=== PATIENT | male | born 1975 | race Caucasian/White ===

== ENCOUNTER → 2016-07-24 | Outpatient (CLI) | payer OTHER ==
--- NOTE | 2016-07-24 08:44 | US ---
EXAMINATION TYPE: US abdomen complete DATE OF EXAM: 07/24/2016 7:57 AM COMPARISON: NONE CLINICAL HISTORY: 41-year-old male R10.0 ABD PAIN. Right upper quadrant pain that radiates posteriorl y, worse after eating. TECHNIQUE: Multiple sonographic images of the abdomen were obtained. FINDINGS: TECHNOLOGIST NOTES: Some limitations due to overlying bowel gas Liver Length: 13.7 cm Gallbladder Wall: 0.2 cm CBD: 0.2 cm Spleen: 8.8 cm Right Kidney: 10.4 x 4.1 x 5.3 cm Left Kidney: 10.2 x 5.8 x 5.0 cm Pancreas: Only a small portion of the pancreatic neck and body are seen and show no gross abnormalit y. Pancreatic head, most of the body, and the pancreatic tail are obscured by bowel gas shadowing. Liver: Overall homogeneous echotexture without focal lesion. Gallbladder: No abnormal gallbladder distention, wall thickening, pericholecystic fluid, or shadowin g calculi. Evidence for sonographic Laureano's sign: no CBD: Within normal limits. Spleen: Within normal limits. Right Kidney: No hydronephrosis. Left Kidney: No hydronephrosis. Upper IVC: Within normal limits. Abd Aorta: Within normal limits. IMPRESSION: Suboptimal visualization of the pancreas. Otherwise, unremarkable sonographic examination of the abdo men.
== END | disposition home or self-care (01) ==
LOC: RADUSWWP 07:39
PROVIDERS: ATTEND Family Medicine
DX: R10.9 Unspecified abdominal pain (principal)
CPT/HCPCS: 76700

== ENCOUNTER → 2016-07-25 | Outpatient (CLI) | payer OTHER ==
--- NOTE | 2016-07-25 18:52 | XR ---
EXAMINATION TYPE: XR KUB DATE OF EXAM: 07/25/2016 4:43 PM COMPARISON: NONE HISTORY: Upper abdominal pain TECHNIQUE: Single view FINDINGS: Bowel gas pattern is normal. There is no sign of intestinal obstruction or pneumoperitoneum . Fecal pattern is normal. There is no sign of a mass. There are no pathologic calcifications over th e kidneys. IMPRESSION: Nonacute abdomen.
== END | disposition home or self-care (01) ==
LOC: RADXRMAIN 16:34
PROVIDERS: ATTEND Family Medicine
DX: R10.9 Unspecified abdominal pain (principal)
CPT/HCPCS: 74000

== ENCOUNTER → 2017-03-27 | Outpatient (CLI) | payer OTHER ==
--- NOTE | 2017-03-27 15:29 | NM ---
EXAMINATION TYPE: NM hepatobiliary w EF DATE OF EXAM: 03/27/2017 COMPARISON: Ultrasound abdomen 07/24/2016 HISTORY: Gastroesophageal reflux disease, R 10.1 3 TECHNIQUE: After the intravenous administration of 5.44 mCi Tc 99m Mebrofenin hepatobiliary scintigra phy is performed. Immediate images post injection. FINDINGS: There is satisfactory initial accumulation of tracer by the liver. The gallbladder is visualized wit hin 6 minutes. The small bowel activity is noted within 10 minutes. At one hour 8 ounces of oral en sure plus is given to mimic CCK and gallbladder ejection fraction is calculated at 72 %, in the ryan l range. Therefore there is no scintigraphic evidence of cystic or common bile duct obstruction to s uggest acute cholecystitis or gallbladder dyskinesia. IMPRESSION: Exam is within normal limits.
== END | disposition home or self-care (01) ==
LOC: RADNMMAIN 12:51
PROVIDERS: ATTEND Surgery
DX: R10.13 Epigastric pain (principal); K21.9 Gastro-esophageal reflux disease without esophagitis
CPT/HCPCS: 78226; A9537

== ENCOUNTER 2017-05-17 07:40 | Day surgery (SDC) | payer OTHER ==
[2017-05-15 11:53] VITALS: BMI 23.6
[~2017-05-17 07:40] MED LIST: LACTATED RINGERS 1,000 ML IV SCH
[2017-05-17 08:27] VITALS: TEMP 97
[2017-05-17] MEDS ORDERED: LIDOCAINE 1% 20 ML VIAL (10MG/ML) FOR IV START INTRADERMA ONE (08:30)
[2017-05-17] MEDS ORDERED: LIDOCAINE 1% INJ 10MG/ML (20 ML MDV) ONE (08:58)
[2017-05-17] MEDS ORDERED: PROPOFOL 10 MG/ML 20 ML VIAL IV ONE (08:58)
--- NOTE | 2017-05-17 09:03 | P.GSHP ---
History of Present Illness H&P Date: 05/17/17 Chief Complaint: Diarrhea, right-sided abdominal pain This is a 42-year-old male referred from Dr. Allen. Patient rents today for colonoscopy. He's had issues with diarrhea and some right-sided abdominal pain. His recent HIDA scan was within normal limits. Past Medical History Past Medical History: GI Bleed Additional Past Medical History / Comment(s): Abdominal pain since August 2016, freq loose stools History of Any Multi-Drug Resistant Organisms: None Reported Past Surgical History: Hernia Repair, Orthopedic Surgery Additional Past Surgical History / Comment(s): Bilateral inguinal hernia repair. cervical disc fusion/screws. Thyroglossal duct cyst removal yrs ago Past Anesthesia/Blood Transfusion Reactions: No Reported Reaction Smoking Status: Current every day smoker - Past Family History Sister(s) Family Medical History: Cancer Additional Family Medical History / Comment(s): Bone CA Medications and Allergies Home Medications Medication Instructions Recorded Confirmed Type Diazepam [Valium] 5 mg PO BID PRN 10/22/14 05/17/17 History Ciprofloxacin HCl [Cipro] 500 mg PO Q12HR #20 tablet 05/14/17 05/15/17 Rx Omeprazole 20 mg PO DAILY 05/14/17 05/17/17 History metroNIDAZOLE [Flagyl] 500 mg PO BID #20 tab 05/14/17 05/15/17 Rx traMADol HCl [Ultram] 50 - 100 mg PO Q6H PRN #20 tab 05/14/17 05/17/17 Rx Allergies Allergy/AdvReac Type Severity Reaction Status Date / Time Penicillins Allergy Rash/Hives/ Verified 05/17/17 08:20 Swelling Surgical - Exam Vital Signs Temp Pulse Resp BP Pulse Ox 97 F L 72 16 131/84 97 05/17/17 08:26 05/17/17 08:26 05/17/17 08:26 05/17/17 08:26 05/17/17 08:26 - General well developed, no distress - Eyes PERRL - ENT normal pinna - Neck no masses - Respiratory normal expansion - Cardiovascular Rhythm: regular - Abdomen Abdomen: soft, non tender Assessment and Plan Assessment: Diarrhea, right-sided abdominal pain. We'll perform colonoscopy.
--- NOTE | 2017-05-17 09:17 | P.OP ---
Date of Procedure: 05/17/17 Preoperative Diagnosis: Diarrhea Right-sided abdominal pain Postoperative Diagnosis: Normal colon, random right colon biopsies performed Procedure(s) Performed: Colonoscopy Anesthesia: MAC Surgeon: Rudi Silvestre Pathology: other (Random right colon biopsies) Condition: stable Disposition: PACU Description of Procedure: The patient's placed on the endoscopy table lateral position. He received IV sedation. Digital rectal exam was performed which revealed no abnormalities. The colonoscope was then placed patient anus passed throughout the entire colon. The ileocecal valve was visualized. Cecum appeared normal. Scope summer back right colon there was no obvious abnormality. A random right colon biopsies performed. Scope was brought back and the remainder of the ascending colon, transverse colon descending colon and sigmoid colon appeared normal. Scope was then brought back the rectum and this appeared normal. Scope was withdrawn for patient.
[2017-05-17 09:56] VITALS: BP 106/71; PULSE 73; RESP 18
== END 2017-05-17 10:49 | disposition home or self-care (01) ==
LOC: ORWHC2ENDO 07:40
PROVIDERS: ATTEND Surgery
DX: R19.7 Diarrhea, unspecified (principal); R10.9 Unspecified abdominal pain; F17.200 Nicotine dependence, unspecified, uncomplicated; Z88.0 Allergy status to penicillin; Z79.899 Other long term (current) drug therapy; Z80.8 Family history of malignant neoplasm of other organs or systems; K21.9 Gastro-esophageal reflux disease without esophagitis
CPT/HCPCS: 88305; 45380; J2001; J2704

== ENCOUNTER → 2017-07-30 | Outpatient (CLI) | payer OTHER ==
--- NOTE | 2017-07-30 10:45 | NM ---
EXAMINATION TYPE: NM hepatobiliary w CCK DATE OF EXAM: 07/30/2017 COMPARISON: CT abdomen pelvis 05/14/2017 HISTORY: Abdominal pain TECHNIQUE: After the intravenous administration of 5.32 mCi Tc 99m Mebrofenin hepatobiliary scintigra phy is performed. Immediate images post injection. FINDINGS: There is satisfactory initial accumulation of tracer by the liver. The gallbladder is visualized wit hin 10 minutes. The small bowel activity is noted within 25 minutes. At one hour CCK was administer ed, patient was injected with 1.45 mcg of Kinevac, and gallbladder ejection fraction is calculated at 91 %. Therefore there is no scintigraphic evidence of cystic or common bile duct obstruction to sug gest acute cholecystitis. IMPRESSION: Gallbladder ejection fraction is 91%, no cystic duct obstruction.
== END | disposition home or self-care (01) ==
LOC: RADNMMAIN 07:03
PROVIDERS: ATTEND Surgery
DX: R10.84 Generalized abdominal pain (principal)
CPT/HCPCS: 78227; A9537; J2805

== ENCOUNTER 2017-08-06 09:03 | Day surgery (SDC) | payer OTHER ==
[2017-08-02 09:31] VITALS: BMI 23.6
[~2017-08-06 09:03] MED LIST changes: +CLINDAMYCIN 900 MG in DEXTROSE 5% IN WATER 50 ML IVPB ONE; +DEXAMETHASONE SOD PHOSPHATE 10 MG/ML 1 ML VIAL IV ONE; +HEPARIN SODIUM,PORCINE 5,000 UNIT/ML 1 ML VIAL SQ ONE; +LIDOCAINE 1% 20 ML VIAL (10MG/ML) FOR IV START INTRADERMA PRN; +MORPHINE SULFATE 2 MG/ML SYRINGE IV PRN; +ONDANSETRON 4 MG/2 ML VIAL IVP ONE; +SCOPOLAMINE 1.5MG/72HR PATCH TRANSDERM ONE
[2017-08-06 10:07] VITALS: TEMP 97.4
--- NOTE | 2017-08-06 10:26 | P.GSHP ---
History of Present Illness H&P Date: 08/06/17 Chief Complaint: Right upper quadrant pain This is a 41-year-old male referred from Dr. Allen. Patient points of right quadrant pain. He's had a recent HIDA scan which was abnormal ejection fraction. Patient presents today for laparoscopic cholecystectomy. Past Medical History Past Medical History: GI Bleed History of Any Multi-Drug Resistant Organisms: None Reported Past Surgical History: Hernia Repair, Orthopedic Surgery Additional Past Surgical History / Comment(s): Bilateral inguinal hernia repair. cervical disc fusion/screws. Thyroglossal duct cyst removal Past Anesthesia/Blood Transfusion Reactions: No Reported Reaction Smoking Status: Current every day smoker - Past Family History Sister(s) Family Medical History: Cancer Additional Family Medical History / Comment(s): Bone CA Medications and Allergies Home Medications Medication Instructions Recorded Confirmed Type Diazepam [Valium] 5 mg PO BID PRN 10/22/14 08/06/17 History Omeprazole 20 mg PO DAILY PRN 05/14/17 08/06/17 History Allergies Allergy/AdvReac Type Severity Reaction Status Date / Time Penicillins Allergy Rash/Hives/ Verified 08/06/17 09:57 Swelling Surgical - Exam Vital Signs Temp Pulse Resp BP Pulse Ox 97.4 F L 67 16 144/82 100 08/06/17 10:05 08/06/17 10:05 08/06/17 10:05 08/06/17 10:05 08/06/17 10:05 - General well developed, no distress - Eyes PERRL - ENT normal pinna - Neck no masses - Respiratory normal expansion - Cardiovascular Rhythm: regular - Abdomen Abdomen: soft, non tender Assessment and Plan Plan: Right upper quadrant pain Chronic cholecystis We'll perform laparoscopic cholecystectomy.
[2017-08-06] MEDS ORDERED: BUPIVACAINE (PF) 0.25% 30 ML VIAL SQ ONE ×2 (10:46→11:07)
[2017-08-06] MEDS ORDERED: PROPOFOL 10 MG/ML 20 ML VIAL IV ONE (10:47)
[2017-08-06] MEDS ORDERED: fentaNYL (PF) 50 MCG/ML 2 ML AMP ONE (10:47)
[2017-08-06] MEDS ORDERED: SUCCINYLCHOLINE CHLORIDE 100 MG/5 ML SYR IV ONE (10:47)
[2017-08-06] MEDS ORDERED: ROCURONIUM BROMIDE 10 MG/ML 10 ML VIAL IV ONE (10:47)
[2017-08-06] MEDS ORDERED: NEOSTIGMINE 1 MG/ML 10 ML VIAL ONE (10:47)
[2017-08-06] MEDS ORDERED: KETOROLAC 30 MG/ML 1 ML VIAL ONE (10:47)
[2017-08-06] MEDS ORDERED: LIDOCAINE 1% INJ 10MG/ML (20 ML MDV) ONE (10:47)
[2017-08-06] MEDS ORDERED: GLYCOPYRROLATE 0.2 MG/ML 2 ML VIAL ONE (10:47)
[2017-08-06] MEDS ORDERED: MIDAZOLAM 2 MG/2 ML VIAL ONE (10:47)
[2017-08-06] MEDS ORDERED: LACTATED RINGERS 1,000 ML IV ONE (11:30)
--- NOTE | 2017-08-06 11:34 | P.OP ---
Date of Procedure: 08/06/17 Preoperative Diagnosis: Cholecystitis Postoperative Diagnosis: Cholecystitis Procedure(s) Performed: Laparoscopic cholecystectomy Anesthesia: QUINCY Surgeon: Rudi Silvestre Estimated Blood Loss (ml): 5 Pathology: other (Gallbladder) Condition: stable Disposition: PACU Description of Procedure: The patient was placed on the operating table. The patient received a general endotracheal tube anesthesia. The patients abdomen was prepped and draped in the usual sterile fashion. Through an infraumbilical stab incision, the fascia of the anterior abdominal wall was grasped with a pair of Kochers and then the Veress needle was placed in the peritoneal cavity. Position of the Veress needle was confirmed with positive drop test. The abdomen was then insufflated. After adequate insufflation, the 10 mm trocar was placed in the peritoneal cavity. Following this the laparoscope was placed in the peritoneal cavity. The patient was placed in the head-up, right side up position and then a 5 mm trocar was placed in the right lateral and right subcostal position under direct visualization. A 8 mm trocar was placed in the epigastric position. The gallbladder was grasped in the fundus and infundibulum. Traction on the gallbladder was placed in the lateral and the cephalad positions. The triangle of Calot was visualized.. The cystic duct was bluntly dissected until the union of the cystic duct and common bile duct was seen. The cystic duct was then divided and sealed with the Harmonic scissors. A PDS Endoloop was then placed throughout the cystic duct stump. The cystic artery divided and sealed with the Harmonic scissors. The gallbladder was then removed from the liver bed using Harmonic scissors. The gallbladder was then extracted through the epigastric port site. Operative field was checked for any bleeding spots and Harmonic scissors was used to coagulate the liver bed. The abdomen was irrigated. The trocars were removed. The skin was closed using interrupted 3-0 Vicryl suture. Dermabond dressing were applied. The patient tolerated the procedure well.
[2017-08-06] MEDS: MEPERIDINE 50 MG/ML SYRINGE IVP ONE ×4 (11:41→12:27)
[2017-08-06] MEDS ORDERED: HYDROcodone/APAP 7.5-325MG 1 EACH TAB PO ONE (13:14)
[2017-08-06 13:24] VITALS: BP 118/71; PULSE 58; RESP 18
== END 2017-08-06 14:05 | disposition home or self-care (01) ==
LOC: OR 09:03
PROVIDERS: ATTEND Surgery
DX: K81.1 Chronic cholecystitis (principal); F17.200 Nicotine dependence, unspecified, uncomplicated; Z88.0 Allergy status to penicillin; Z79.899 Other long term (current) drug therapy; Z98.1 Arthrodesis status
CPT/HCPCS: 88304; 47562; J2250; J1644; J1100; J2710; J2175; J2405; J2001; J3010; J1885; J0330; J2704

== ENCOUNTER 2017-10-02 17:20 | Observation (INO) | payer OTHER ==
[2017-10-02] MEDS ORDERED: ASPIRIN 81 MG PO STA (17:36)
[2017-10-02] MEDS ORDERED: NITROGLYCERIN SL TABS 0.4 MG TAB SUBLINGUAL STA (18:00)
--- NOTE | 2017-10-02 18:27 | XR ---
EXAMINATION TYPE: XR chest 2V DATE OF EXAM: 10/02/2017 COMPARISON: NONE HISTORY: Chest pain TECHNIQUE: Frontal and lateral views of the chest are obtained. FINDINGS: There is no focal air space opacity. No evidence for pneumothorax. No pleural effusion. The cardiac silhouette size is within normal limits. The osseous structures are grossly intact. IMPRESSION: 1. No acute cardiopulmonary process.
--- NOTE | 2017-10-02 18:34 | ED ---
Chest Pain HPI - General Chief Complaint: Chest Pain Stated Complaint: Chest pain/lt arm tingling Time Seen by Provider: 10/02/17 17:35 Source: patient, RN notes reviewed Mode of arrival: wheelchair Limitations: no limitations - History of Present Illness Initial Comments: 42-year-old male presents emergency Department which he went to chest pain. Patient states his started around 245- 3:00 today. Patient states he had dental procedure prior to this. Patient states that he has waxing and waning sharp squeezing pain in his chest. He states it is associated left arm numbness. He does have a family heart disease. Patient denies any history of hyperlipidemia, diabetes. Patient is a daily smoker. Patient states she's had no prior cardiac disease. Patient denies any back pain, abdominal pain, nausea vomiting. - Related Data Home Medications Medication Instructions Recorded Confirmed Diazepam [Valium] 5 mg PO BID PRN 10/22/14 10/02/17 Acetaminophen-Codeine 300-30mg 2 tab PO Q8H PRN 10/02/17 10/02/17 [Tylenol #3] Allergies Allergy/AdvReac Type Severity Reaction Status Date / Time Penicillins Allergy Rash/Hives/ Verified 10/02/17 17:46 Swelling Review of Systems ROS Statement: Those systems with pertinent positive or pertinent negative responses have been documented in the HPI. ROS Other: All systems not noted in ROS Statement are negative. EKG Findings - EKG Comments: EKG Findings:: EKG performed at 18:05 normal sinus rhythm with rate of 64 OH 148 QRS 90 QT/QTC 412/425 Past Medical History Past Medical History: GI Bleed History of Any Multi-Drug Resistant Organisms: None Reported Past Surgical History: Hernia Repair, Orthopedic Surgery Additional Past Surgical History / Comment(s): Bilateral inguinal hernia repair. cervical disc fusion/screws. Thyroglossal duct cyst removal Past Anesthesia/Blood Transfusion Reactions: No Reported Reaction Past Psychological History: No Psychological Hx Reported Smoking Status: Current every day smoker Past Alcohol Use History: Occasional Past Drug Use History: None Reported - Past Family History Sister(s) Family Medical History: Cancer Additional Family Medical History / Comment(s): Bone CA General Exam Limitations: no limitations General appearance: alert, in no apparent distress Head exam: Present: atraumatic, normocephalic, normal inspection Eye exam: Present: normal appearance, PERRL, EOMI. Absent: scleral icterus, conjunctival injection, periorbital swelling Neck exam: Present: normal inspection, full ROM. Absent: tenderness, meningismus, lymphadenopathy Respiratory exam: Present: normal lung sounds bilaterally. Absent: respiratory distress, wheezes, rales, rhonchi, stridor Cardiovascular Exam: Present: regular rate, normal rhythm, normal heart sounds. Absent: systolic murmur, diastolic murmur, rubs, gallop, clicks GI/Abdominal exam: Present: soft, normal bowel sounds. 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 Patient be admitted for observation for serial troponins. Disposition Clinical Impression: Chest pain Disposition: ADMITTED IP TO THIS HOSP Condition: Stable Referrals: Priyank Allen MD [Primary Care Provider] - 1-2 days
[2017-10-02 18:59] LABS: Basophils # (A) 0.1 k/uL (0-0.2); Basophils % (A) 0 %; Eosinophils # (A) 0.3 k/uL (0-0.7); Eosinophils % (A) 3 %; HCT 43.8 % (39.0-53.0); HGB 15.3 gm/dL (13.0-17.5); Lymphocytes # (A) 2.1 k/uL (1.0-4.8); Lymphocytes % (A) 16 %; MCH 32.7 pg (25.0-35.0); MCHC 34.9 g/dL (31.0-37.0); MCV 93.6 fL (80.0-100.0); Mean Platelet Volume 6.2; Monocytes # (A) 0.6 k/uL (0-1.0); Monocytes % (A) 4 %; Neutrophils # (A) 10.3 k/uL (1.3-7.7); Neutrophils % (A) 76 %; Platelet Count 391 k/uL (150-450); RBC 4.68 m/uL (4.30-5.90); RDW 13.7 % (11.5-15.5); WBC 13.5 k/uL (3.8-10.6)
[2017-10-02 19:06] LABS: Partial Thromboplastin Time 23.2 sec (22.0-30.0)
[2017-10-02 19:10] LABS: ALT 72 U/L (21-72); AST 157 U/L (17-59); Albumin 4.4 g/dL (3.5-5.0); Alkaline Phosphatase 91 U/L (38-126); Amylase 74 U/L (30-110); Anion Gap 13 mmol/L; Blood Urea Nitrogen 11 mg/dL (9-20); Calcium 9.7 mg/dL (8.4-10.2); Carbon Dioxide 22 mmol/L (22-30); Chloride 106 mmol/L (98-107); Glucose 96 mg/dL (74-99); Lipase 257 U/L (23-300); Magnesium 1.9 mg/dL (1.6-2.3); Potassium 3.9 mmol/L (3.5-5.1); Sodium 141 mmol/L (137-145); Total Protein 6.6 g/dL (6.3-8.2)
[2017-10-02 19:16] LABS: Creatine Kinase 43 U/L (55-170)
[2017-10-02 19:30] LABS: Creatine Kinase MB 0.4 ng/mL (0.0-2.4); Troponin I <0.012 ng/mL (0.000-0.034)
[2017-10-02] MEDS ORDERED: RX INFO: IV CONTRAST WAS GIVEN 1 EACH MISC MISCELLANE PRN (19:40)
[2017-10-02] MEDS ORDERED: NITROGLYCERIN SL TABS 0.4 MG TAB SUBLINGUAL PRN (19:46)
--- NOTE | 2017-10-02 20:11 | CT ---
EXAMINATION TYPE: CT chest angio for PE DATE OF EXAM: 10/02/2017 COMPARISON: NONE HISTORY: Patient complains of midline chest pain today. CT DLP: 231.6 mGycm CONTRAST: CT chest with contrast and 3D reconstruction with MIP imaging is performed with IV Contrast, patient injected with 100 mL of Isovue 370. Contrast-enhanced CT of the chest was performed through the course of the pulmonary arteries with austin g and mediastinal window settings submitted. 3D reconstruction with MIP imaging was also performed. PULMONARY ARTERIES: The pulmonary arteries and their major tributaries are patent. I do not see emy dence for sizable filling defect to suggest pulmonary embolic process. LUNGS: Mild upper lobe emphysematous changes identified. The lungs are clear and free of infiltrate. No evidence for atelectasis. No pulmonary nodule or mass is detected. No pleural effusion. MEDIASTINUM: Thoracic aorta is of normal caliber,however, evaluation is limited given timing of the contrast bolus. If there is concern for thoracic aortic pathology consider RENÉ. Correlate clinicall y . The heart is not enlarged. No evidence for mediastinal mass. No mediastinal lymph nodes greater than 1cm. HILAR STRUCTURES: No evidence for mass. No hilar lymph nodes greater than 1 cm. UPPER ABDOMEN: No significant abnormality is seen. IMPRESSION: 1. No evidence for Pulmonary embolism at this time.
[2017-10-02 22:21] VITALS: RESP 16
[2017-10-02 22:30] VITALS: BMI 21.9
[2017-10-02] MEDS ORDERED: HYDROcodone/APAP 5-325MG 1 EACH TAB PO PRN (22:45)
[2017-10-03 00:48] LABS: Creatine Kinase 37 U/L (55-170)
[2017-10-03 01:02] LABS: Creatine Kinase MB 0.5 ng/mL (0.0-2.4); Troponin I <0.012 ng/mL (0.000-0.034)
--- NOTE | 2017-10-03 08:11 | P.HPIM ---
History of Present Illness H&P Date: 10/03/17 Chief Complaint: Chest pressure. This is a history of physical 42-year-old white male who complained of chest pressure. He states 3 weeks ago in the morning had vague chest pressure which was not very intense. Yesterday after having a tooth extraction, he had sudden onset chest pressure which lasted almost an hour. Radiation to the left arm was otherwise noted. No nausea was stated. It was debilitating. No significant fever or chills were stated. He has had no previous symptoms otology as this. He has no primary relative with premature heart disease but he states uncles have had coronary disease but nothing premature. He states the pain had resolved spontaneously. He was given some nitroglycerin and stated that the this did help slightly. The patient is now fairly asymptomatic but concerned. Review of Systems Constitutional: Denies chills, Denies fever Eyes: denies blurred vision, denies pain Ears, nose, mouth and throat: Denies headache, Denies sore throat Cardiovascular: Reports chest pain Gastrointestinal: Denies abdominal pain, Denies diarrhea, Denies nausea, Denies vomiting Musculoskeletal: Denies myalgias Integumentary: Denies pruritus, Denies rash Past Medical History Past Medical History: GI Bleed History of Any Multi-Drug Resistant Organisms: None Reported Past Surgical History: Cholecystectomy, Hernia Repair, Orthopedic Surgery Additional Past Surgical History / Comment(s): Bilateral inguinal hernia repair. cervical disc fusion/screws. Thyroglossal duct cyst removal Past Anesthesia/Blood Transfusion Reactions: No Reported Reaction Smoking Status: Current every day smoker - Past Family History Mother Family Medical History: COPD Father Family Medical History: No Reported History Sister(s) Family Medical History: Cancer Additional Family Medical History / Comment(s): Bone CA Medications and Allergies Home Medications Medication Instructions Recorded Confirmed Type Diazepam [Valium] 5 mg PO BID PRN 10/22/14 10/02/17 History Acetaminophen-Codeine 300-30mg 2 tab PO Q8H PRN 10/02/17 10/02/17 History [Tylenol #3] Allergies Allergy/AdvReac Type Severity Reaction Status Date / Time Penicillins Allergy Rash/Hives/ Verified 10/02/17 22:19 Swelling Physical Exam Vitals: Vital Signs Temp Pulse Pulse Pulse Resp BP BP 10/03/17 07:57 98 F 78 16 103/61 10/03/17 04:00 98.1 F 58 L 16 130/67 10/02/17 23:38 16 10/02/17 22:18 98.1 F 71 16 116/65 10/02/17 21:55 97.9 F 66 20 135/80 10/02/17 18:41 68 16 119/65 10/02/17 18:20 60 20 10/02/17 17:30 97.3 F L 74 19 132/83 Pulse Ox 10/03/17 07:57 93 L 10/03/17 04:00 95 10/02/17 23:38 10/02/17 22:18 93 L 10/02/17 21:55 98 10/02/17 18:41 98 10/02/17 18:20 10/02/17 17:30 100 Intake and Output 10/02/17 10/03/17 10/03/17 22:59 06:59 14:59 Other: Weight 71.2 kg - Constitutional General appearance: no acute distress - EENT Eyes: EOMI - Neck Neck: no lymphadenopathy - Respiratory Respiratory: bilateral: CTA - Cardiovascular Rhythm: regular Heart sounds: normal: S1, S2 Abnormal Heart Sounds: no S3 Gallop - Gastrointestinal General gastrointestinal: soft, no tenderness - Integumentary Integumentary: no cellulitis, no cyanotic - Neurologic Neurologic: CNII-XII intact Results CBC & Chem 7: 10/02/17 18:49 10/02/17 18:49 Labs: Abnormal Lab Results - Last 24 Hours (Table) 10/02/17 10/02/17 10/02/17 Range/Units 18:49 18:49 18:49 WBC 13.5 H (3.8-10.6) k/uL Neutrophils # 10.3 H (1.3-7.7) k/uL Plasma Lactic Acid [place] (0.7-2.0) mmol/L AST 157 H (17-59) U/L Total Creatine Kinase 43 L (55-170) U/L 10/02/17 10/03/17 Range/Units 20:17 00:07 WBC (3.8-10.6) k/uL Neutrophils # (1.3-7.7) k/uL Plasma Lactic Acid [place] 0.5 L (0.7-2.0) mmol/L AST (17-59) U/L Total Creatine Kinase 37 L (55-170) U/L Thrombosis Risk Factor Assmnt - Choose All That Apply Each Factor Represents 1 point: Age 41-60 years Thrombosis Risk Factor Assessment Total Risk Factor Score: 1 Thrombosis Risk Factor Assessment Level: Low Risk Assessment and Plan (1) Chest pain Current Visit: Yes Status: Acute Code(s): R07.9 - CHEST PAIN, UNSPECIFIED SNOMED Code(s): 19103175 Plan: Given overall presentation, we will rule out myocardial infarction. Cardiology is not consulted. Reconcile home medications. We'll go ahead and give [place] for tooth extraction postoperative pain. See orders otherwise. He is a full code. Tobacco cessation discussed with the patient at length. Anticipate discharge in next 24 hours if stress testing is stable. Time with Patient: Less than 30
[2017-10-03 08:14] LABS: Cholesterol 200 mg/dL (<200); HDL Cholesterol 74 mg/dL (40-60); LDL Cholesterol,Calculated 109 mg/dL (0-99); Triglycerides 85 mg/dL (<150)
[2017-10-03 08:17] LABS: Creatine Kinase 34 U/L (55-170)
[2017-10-03 08:28] LABS: Creatine Kinase MB 0.4 ng/mL (0.0-2.4); Troponin I <0.012 ng/mL (0.000-0.034)
[2017-10-03] MEDS ORDERED: ASPIRIN 325 MG TAB PO SCH (09:00)
--- NOTE | 2017-10-03 11:11 | P.CRDCN ---
History of Present Illness Consult date: 10/03/17 History of present illness: Mr. Saldivar is a pleasant 42-year-old male past medical history significant for chronic nicotine dependence. He denies personal history of coronary artery disease, hypertension, dylispidemia or diabetes mellitus. We have been asked to see him in consultation for chest pain. He states he had a tooth extraction yesterday morning and was at home resting in his chair when he got an intense pain in his chest described as squeezing. He then started to feel short of breath and the pain went down into his left arm. The pain lasted approximately 20-30 minutes. By the time he arrived in the ED the pain was starting to subside down to 2/10. He received aspirin and nitroglycerin. His pain has completely subsided and has had no reoccurrence since admission. EKG reveals sinus mechanism with no acute ST or T-wave abnormalities. Chest xray is negative for an acute cardiopulmonary process. CTA negative for PE with a hiatal hernia. Laboratory data reviewed, WBC 13.5, hemoglobin 15.3, platelets 391, sodium 141, potassium 3.9, magnesium 1.9, creatinine 0.7, cardiac enzymes negative 3, LDL 109, HDL 74. Review of Systems At the time of my exam: CONSTITUTIONAL: Denies fever. Denies chills. EYES: Denies blurred vision. Denies vision changes. Denies eye pain. EARS, NOSE, MOUTH & THROAT: Denies headache. Denies sore throat. Denies ear pain. CARDIOVASCULAR: Denies chest pain. Denies shortness of breath. Denies orthopnea. Denies PND. Denies palpitations. RESPIRATORY: Denies cough. GASTROINTESTINAL: Denies abdominal pain. Denies diarrhea. Denies constipation. Denies nausea. Denies vomiting. MUSCULOSKELETAL: Denies myalgias. INTEGUMENTARY: Denies pruitis. Denies rash. NEUROLOGIC: Denies numbness. Denies tingling. Denies weakness. PSYCHIATRIC: Denies anxiety. Denies depression. ENDOCRINE: Denies fatigue. Denies weight change. Denies polydipsia. Denies polyurina. GENITOURINARY: Denies burning, hematuria or urgency with micturation. HEMATOLOGIC: Denies history of anemia. Denies bleeding. Past Medical History Past Medical History: GI Bleed History of Any Multi-Drug Resistant Organisms: None Reported Past Surgical History: Cholecystectomy, Hernia Repair, Orthopedic Surgery Additional Past Surgical History / Comment(s): Bilateral inguinal hernia repair. cervical disc fusion/screws. Thyroglossal duct cyst removal Past Anesthesia/Blood Transfusion Reactions: No Reported Reaction Smoking Status: Current every day smoker - Past Family History Mother Family Medical History: COPD Father Family Medical History: No Reported History Sister(s) Family Medical History: Cancer Additional Family Medical History / Comment(s): Bone CA Medications and Allergies Home Medications Medication Instructions Recorded Confirmed Type Diazepam [Valium] 5 mg PO BID PRN 10/22/14 10/02/17 History Acetaminophen-Codeine 300-30mg 2 tab PO Q8H PRN 10/02/17 10/02/17 History [Tylenol #3] Allergies Allergy/AdvReac Type Severity Reaction Status Date / Time Penicillins Allergy Rash/Hives/ Verified 10/02/17 22:19 Swelling Physical Exam Vitals: Vital Signs Temp Pulse Pulse Pulse Resp BP BP 10/03/17 08:00 58 L 78 16 10/03/17 07:57 98 F 78 16 103/61 10/03/17 04:00 98.1 F 58 L 16 130/67 10/02/17 23:38 16 10/02/17 22:18 98.1 F 71 16 116/65 10/02/17 21:55 97.9 F 66 20 135/80 10/02/17 18:41 68 16 119/65 10/02/17 18:20 60 20 10/02/17 17:30 97.3 F L 74 19 132/83 Pulse Ox 10/03/17 08:00 10/03/17 07:57 93 L 10/03/17 04:00 95 10/02/17 23:38 10/02/17 22:18 93 L 10/02/17 21:55 98 10/02/17 18:41 98 10/02/17 18:20 10/02/17 17:30 100 Intake and Output 10/02/17 10/03/17 10/03/17 22:59 06:59 14:59 Other: Voiding Method Toilet # Voids 1 Weight 71.2 kg Blood pressure 103/61 heart rate 78 afebrile maintaining oxygen saturation on room air. GENERAL: This is a 42-year-old male in no apparent distress at the time of my examination. HEENT: Head is atraumatic, normocephalic. Pupils are equal, round. Sclerae anicteric. Conjunctivae are clear. Mucous membranes of the mouth are moist. Neck is supple. There is no jugular venous distention. No carotid bruit is heard. LUNGS: Clear to auscultation no wheezes, rales or rhonchi. No chest wall tenderness is noted on palpation or with deep breathing. HEART: Regular rate and rhythm without murmurs, rubs or gallops. S1 and S2 heard. ABDOMEN: Soft, nontender. Bowel sounds are heard. No organomegaly noted. EXTREMITIES: No evidence of peripheral edema and no calf tenderness noted. VASCULAR: Radial and dorsalis pedis pulses palpated, no evidence of clubbing. NEUROLOGIC: Patient is awake, alert and oriented x3. Results 10/02/17 18:49 10/02/17 18:49 Cardiac Enzymes 10/02/17 10/02/17 10/03/17 Range/Units 18:49 18:49 00:07 AST 157 H (17-59) U/L CK-MB (CK-2) 0.4 0.5 (0.0-2.4) ng/mL Troponin I <0.012 <0.012 (0.000-0.034) ng/mL 10/03/17 Range/Units 07:13 AST (17-59) U/L CK-MB (CK-2) 0.4 (0.0-2.4) ng/mL Troponin I <0.012 (0.000-0.034) ng/mL Coagulation 10/02/17 Range/Units 18:49 PT 10.0 (9.0-12.0) sec APTT 23.2 (22.0-30.0) sec Lipids 10/03/17 Range/Units 07:13 Triglycerides 85 (<150) mg/dL Cholesterol 200 H (<200) mg/dL HDL Cholesterol 74 H (40-60) mg/dL CBC 10/02/17 Range/Units 18:49 WBC 13.5 H (3.8-10.6) k/uL RBC 4.68 (4.30-5.90) m/uL Hgb 15.3 (13.0-17.5) gm/dL Hct 43.8 (39.0-53.0) % Plt Count 391 (150-450) k/uL Comprehensive Metabolic Panel 10/02/17 Range/Units 18:49 Sodium 141 (137-145) mmol/L Potassium 3.9 (3.5-5.1) mmol/L Chloride 106 (98-107) mmol/L Carbon Dioxide 22 (22-30) mmol/L BUN 11 (9-20) mg/dL Creatinine 0.70 (0.66-1.25) mg/dL Glucose 96 (74-99) mg/dL Calcium 9.7 (8.4-10.2) mg/dL AST 157 H (17-59) U/L ALT 72 (21-72) U/L Alkaline Phosphatase 91 (38-126) U/L Total Protein 6.6 (6.3-8.2) g/dL Albumin 4.4 (3.5-5.0) g/dL Current Medications Generic Name Dose Route Start Last Admin Trade Name Freq PRN Reason Stop Dose Admin Hydrocodone Bitart/Acetaminophen 1 each 10/02/17 22:45 Taylor 5-325 PO Q4HR PRN Pain Aspirin 325 mg 10/03/17 09:00 Aspirin PO DAILY VANESSA Miscellaneous Information 1 each 10/02/17 19:40 10/02/17 19:45 Rx Info: Iv Contrast Was Given MISCELLANE 10/04/17 19:40 1 each DAILY PRN Administration Per Protocol Nitroglycerin 0.4 mg 10/02/17 19:46 Nitrostat SUBLINGUAL Q5M PRN Chest Pain Intake and Output 10/02/17 10/03/17 10/03/17 22:59 06:59 14:59 Other: Voiding Method Toilet # Voids 1 Weight 71.2 kg 10/02/17 18:49 10/02/17 18:49 Assessment and Plan Assessment: ASSESSMENT 1. Chest pain, atypical. An acute coronary event has been ruled out with no EKG evidence of ischemia and negative cardiac enzymes. 2. Nicotine dependence 3. Family history of premature coronary artery disease PLAN Obtain 2-D echocardiogram and Doppler study to assess cardiac structure and function. Perform exercise stress test to assess for stress induced cardiac ischemia. Smoking cessation discussed and recommended. If stress test is negative he is stable from a cardiac perspective. If positive will consider coronary angiography. Thank you kindly for this consultation. Nurse Practitioner note has been reviewed, I agree with a documented findings and plan of care. Patient was seen and examined.
--- NOTE | 2017-10-03 13:23 | ECHOF ---
Referral Reason:chest pain MEASUREMENTS -------- HEIGHT: 157.5 cm WEIGHT: 70.8 kg BP: 130/67 RVIDd: 3.0 cm (< 3.3) IVSd: 1.1 cm (0.6 - 1.1) LVIDd: 4.7 cm (3.9 - 5.3) LVPWd: 1.0 cm (0.6 - 1.1) IVSs: 1.2 cm LVIDs: 4.5 cm LVPWs: 0.8 cm LA Diam: 2.5 cm (2.7 - 3.8) LAESV Index (A-L): 26.48 ml/m Ao Diam: 3.4 cm (2.0 - 3.7) AV Cusp: 2.3 cm (1.5 - 2.6) LA Diam: 3.1 cm (2.7 - 3.8) MV EXCURSION: 19.197 mm (> 18.000) MV EF SLOPE: 100 mm/s (70 - 150) EPSS: 0.4 cm MV E Benny: 0.50 m/s MV DecT: 161 ms MV A Benny: 0.49 m/s MV E/A Ratio: 1.01 RAP: 5.00 mmHg RVSP: 20.64 mmHg FINDINGS -------- Sinus rhythm. This was a technically good study. The left ventricular size is normal. There is borderline concentric left ventricular hypertrophy. Overall left ventricular systolic function is normal with, an EF between 55 - 60 %. The right ventricle is normal in size. The left atrial size is normal. The right atrial size is normal. The aortic valve is trileaflet, and appears structurally normal. No aortic stenosis or regurgitation. Mild mitral annular calcification present. Mild mitral regurgitation is present. Mild tricuspid regurgitation present. There is no evidence of pulmonary hypertension. The right v entricular systolic pressure, as measured by Doppler, is 20.64mmHg. There is no pulmonic regurgitation present. The aortic root size is normal. There is no pericardial effusion. CONCLUSIONS -------- 1. The left ventricular size is normal. 2. There is borderline concentric left ventricular hypertrophy. 3. Overall left ventricular systolic function is normal with, an EF between 55 - 60 %. 4. The aortic valve is trileaflet, and appears structurally normal. No aortic stenosis or regurgitati on. 5. Mild mitral annular calcification present. 6. Mild mitral regurgitation is present. 7. Mild tricuspid regurgitation present. 8. There is no evidence of pulmonary hypertension. 9. The right ventricular systolic pressure, as measured by Doppler, is 20.64mmHg. 10. There is no pulmonic regurgitation present. 11. The aortic root size is normal. 12. There is no pericardial effusion. BREWERY WORKER: Maria Luz Lopez RDCS
[2017-10-03 15:58] VITALS: PULSE 70
[2017-10-03 15:59] VITALS: BP 106/66; TEMP 98.2
--- NOTE | 2017-10-03 17:12 | EST ---
EXERCISE STRESS DATE OF STUDY: 10/03/2017. INDICATION FOR STUDY: Chest pain. AGE: 42 SEX: Male. HT: 5'11" WT: 156 PROTOCOL: Garett. STAGE: IV. DURATION OF EXERCISE: 12 minutes 16 seconds. HEART RATE REST: 61 BLOOD PRESSURE REST: 116/77 MAXIMUM HEART RATE ACHIEVED: 154 MAXIMUM BLOOD PRESSURE: 145/78 85% MPHR: 150 100% MPHR: 176 METS: 12.5 CLINICAL INFORMATION: STRESS DATA: Pre-testing physical examination showed a heart rate of 61, pressure 116/77 mmHg. Baseline EKG showed sinus mechanism. The patient exercised on the treadmill according to Garett protocol for a total of 12-1/2 minutes. The maximum heart rate was 154, which is about 89% of maximum predicted heart rate. Maximum blood pressure was 190/74 mm Hg. Clinically the patient did not have any symptoms of chest pain or discomfort during the testing or in the recovery time. The EKG did not show any significant ST or T-wave abnormalities consistent with ischemia. CONCLUSION: 1. Excellent exercise capacity. 2. Normal EKG in response to exercise. MMODL / IJN: [id number] /
[2017-10-04] MEDS ORDERED: ASPIRIN 81 MG PO SCH (09:00)
== END 2017-10-03 14:03 | disposition home or self-care (01) ==
LOC: EC 17:20 → 3OBS 19:49
PROVIDERS: ADMIT Family Medicine; ATTEND Family Medicine
DX: R07.89 Other chest pain (principal); R20.2 Paresthesia of skin; R06.02 Shortness of breath; F17.200 Nicotine dependence, unspecified, uncomplicated; G89.18 Other acute postprocedural pain; Z98.818 Other dental procedure status; Z88.0 Allergy status to penicillin; Z87.19 Personal history of other diseases of the digestive system; Z82.5 Family history of asthma and other chronic lower respiratory diseases; Z82.49 Family history of ischemic heart disease and other diseases of the circulatory system; Z80.8 Family history of malignant neoplasm of other organs or systems
CPT/HCPCS: 99285 ×2; 36415; 93005; 93017; 93306; 80061; 80053; 82150; 82550 ×2; 82553 ×2; 83605; 83690; 83735; 84484 ×2; 85025; 85610; 85730; 87040; 71046; 71275; G0378 ×2; Q9967

== ENCOUNTER 2018-08-13 09:57 | Day surgery (SDC) | payer OTHER ==
[2018-08-08 14:53] VITALS: BMI 23.6
[~2018-08-13 09:57] MED LIST changes: -CLINDAMYCIN 900 MG in DEXTROSE 5% IN WATER 50 ML IVPB ONE; -DEXAMETHASONE SOD PHOSPHATE 10 MG/ML 1 ML VIAL IV ONE; -HEPARIN SODIUM,PORCINE 5,000 UNIT/ML 1 ML VIAL SQ ONE; -LIDOCAINE 1% 20 ML VIAL (10MG/ML) FOR IV START INTRADERMA PRN; -MORPHINE SULFATE 2 MG/ML SYRINGE IV PRN; -ONDANSETRON 4 MG/2 ML VIAL IVP ONE; -SCOPOLAMINE 1.5MG/72HR PATCH TRANSDERM ONE
[2018-08-13 10:26] VITALS: RESP 16; TEMP 97.6
[2018-08-13] MEDS ORDERED: LIDOCAINE 1% 20 ML VIAL (10MG/ML) FOR IV START INTRADERMA ONE (10:33)
[2018-08-13] MEDS ORDERED: PROPOFOL 10 MG/ML 20 ML VIAL IV ONE (11:29)
--- NOTE | 2018-08-13 11:31 | P.GSHP ---
History of Present Illness H&P Date: 08/13/18 Chief Complaint: GI bleed This is a 43-year-old male who's had history of GI bleed. Patient presents today for colonoscopy. He states he sees blood on his stool Past Medical History Past Medical History: GI Bleed Additional Past Medical History / Comment(s): BLOOD IN STOOL, FREQUENT DIARRHEA History of Any Multi-Drug Resistant Organisms: None Reported Past Surgical History: Cholecystectomy, Hernia Repair, Orthopedic Surgery Additional Past Surgical History / Comment(s): Bilateral inguinal hernia repair. cervical disc fusion/screws. Thyroglossal duct cyst removal Past Anesthesia/Blood Transfusion Reactions: No Reported Reaction Smoking Status: Current every day smoker - Past Family History Mother Family Medical History: COPD Father Family Medical History: No Reported History Sister(s) Family Medical History: Cancer Additional Family Medical History / Comment(s): Bone CA Medications and Allergies Home Medications Medication Instructions Recorded Confirmed Type No Known Home Medications 08/08/18 08/13/18 History Allergies Allergy/AdvReac Type Severity Reaction Status Date / Time Penicillins Allergy Rash/Hives/ Verified 08/13/18 10:22 Swelling Surgical - Exam Vital Signs Temp Pulse Resp BP Pulse Ox 97.6 F 84 16 139/91 97 08/13/18 10:25 08/13/18 10:25 08/13/18 10:25 08/13/18 10:25 08/13/18 10:25 - General well developed, well nourished, no distress - Eyes PERRL - ENT normal pinna - Neck no masses - Respiratory normal expansion - Cardiovascular Rhythm: regular - Abdomen Abdomen: soft, non tender Assessment and Plan Assessment: GI bleed. We'll perform colonoscopy.
--- NOTE | 2018-08-13 11:53 | P.OP ---
Date of Procedure: 08/13/18 Preoperative Diagnosis: GI bleed Postoperative Diagnosis: Diverticulosis Internal hemorrhoids Procedure(s) Performed: Colonoscopy Anesthesia: MAC Surgeon: Rudi Silvestre Pathology: none sent Condition: stable Disposition: PACU Description of Procedure: The patient's placed on the endoscopy table in the lateral position. He received IV sedation. Digital rectal exam performed which revealed internal hemorrhoids. Flexible colonoscope was then placed patient anus and passed throughout the entire colon. The ileocecal valve was visualized. The cecum, ascending and transverse colon appeared normal. In the descending and sigmoid colon there is a few scattered diverticula. The scope was then brought back into the rectum this appeared normal. The scope was then retroflexed and there were internal hemorrhoids noted. There is no evidence of any active GI bleed. The patient was presumed of blood from internal hemorrhoids. He will be placed on a high-fiber diet.
[2018-08-13 12:16] VITALS: BP 117/79; PULSE 67
== END 2018-08-13 12:44 | disposition home or self-care (01) ==
LOC: ORWHC2ENDO 09:57
PROVIDERS: ATTEND Surgery
DX: K57.30 Diverticulosis of large intestine without perforation or abscess without bleeding (principal); K64.8 Other hemorrhoids; F17.200 Nicotine dependence, unspecified, uncomplicated; Z88.0 Allergy status to penicillin
CPT/HCPCS: 45378; J2704

== ENCOUNTER 2019-01-08 07:39 | Day surgery (SDC) | payer BC, OTHER ==
[2019-01-02 14:03] VITALS: BMI 23.0
[~2019-01-08 07:39] MED LIST changes: +DEXAMETHASONE SOD PHOSPHATE 10 MG/ML 1 ML VIAL IV ONE; +HEPARIN SODIUM,PORCINE 5,000 UNIT/ML 1 ML VIAL SQ ONE; +HYDROmorphone 0.5 MG/0.5 ML SYRINGE IVP PRN; +KETOROLAC 30 MG/ML 1 ML VIAL IVP SCH; +LIDOCAINE 1% 20 ML VIAL (10MG/ML) FOR IV START INTRADERMA PRN; +ONDANSETRON 4 MG/2 ML VIAL IVP PRN; +Pre Op ABX Message 1 EACH MISC MISCELLANE ONE
[2019-01-08 08:05] VITALS: TEMP 97.8
[2019-01-08] MEDS ORDERED: NA PHOS,M-B/NA PHOS,DI-BA 133 ML ENEMA RECTAL ONE (08:10)
[2019-01-08] MEDS ORDERED: LACTATED RINGERS 1,000 ML IV ONE (08:11)
[2019-01-08] MEDS ORDERED: KETAMINE 10 MG/ML 20 ML VIAL ONE (09:16)
[2019-01-08] MEDS ORDERED: MIDAZOLAM 2 MG/2 ML VIAL ONE (09:16)
[2019-01-08] MEDS ORDERED: fentaNYL (PF) 50 MCG/ML 2 ML AMP ONE (09:16)
[2019-01-08] MEDS ORDERED: PROPOFOL 10 MG/ML 20 ML VIAL IV ONE (09:16)
--- NOTE | 2019-01-08 09:17 | P.GSHP ---
History of Present Illness H&P Date: 01/08/19 Chief Complaint: Internal andHemorrhoids This is a 43-year-old male who presents today for excision of internal/external hemorrhoids. Patient says issues of anal pain and bleeding. Past Medical History Past Medical History: GI Bleed Additional Past Medical History / Comment(s): BLOOD IN STOOL, FREQUENT DIARRHEA History of Any Multi-Drug Resistant Organisms: None Reported Past Surgical History: Cholecystectomy, Hernia Repair, Orthopedic Surgery Additional Past Surgical History / Comment(s): Bilateral inguinal hernia repair. cervical disc fusion/screws. Thyroglossal duct cyst removal Past Anesthesia/Blood Transfusion Reactions: No Reported Reaction Smoking Status: Current every day smoker - Past Family History Mother Family Medical History: COPD Father Family Medical History: No Reported History Sister(s) Family Medical History: Cancer Additional Family Medical History / Comment(s): Bone CA Medications and Allergies Home Medications Medication Instructions Recorded Confirmed Type Diazepam [Valium] 5 mg PO DAILY PRN 01/02/19 01/02/19 History Allergies Allergy/AdvReac Type Severity Reaction Status Date / Time Penicillins Allergy Rash/Hives/ Verified 01/02/19 13:56 Swelling Surgical - Exam Vital Signs Temp Pulse Resp BP Pulse Ox 97.8 F 70 18 123/76 98 01/08/19 08:04 01/08/19 08:04 01/08/19 08:04 01/08/19 08:04 01/08/19 08:04 - General well developed, well nourished, no distress - Eyes PERRL - ENT normal pinna - Neck no masses - Respiratory normal expansion - Cardiovascular Rhythm: regular - Abdomen Abdomen: soft, non tender - Rectum Internal and external hemorrhoids Assessment and Plan Assessment: Internal hemorrhoids. We'll perform excision.
[2019-01-08] MEDS ORDERED: BUPIVACAINE (PF) 0.5% 30 ML VIAL SQ ONE (09:36)
[2019-01-08 10:27] VITALS: BP 126/81; PULSE 64; RESP 16
--- NOTE | 2019-01-08 10:31 | P.OP ---
Date of Procedure: 01/08/19 Preoperative Diagnosis: Internal and Hemorrhoids Postoperative Diagnosis: Internal and external hemorrhoids Procedure(s) Performed: Internal and external hemorrhoidectomy Anesthesia: QUINCY Surgeon: Rudi Silvestre Estimated Blood Loss (ml): 10 Pathology: other (Internal and external hemorrhoids) Condition: stable Disposition: PACU Description of Procedure: The patient's placed on the operative table in the prone position. He received IV sedation. His anus was prepped and draped usual sterile fashion. The anus was injected in 4 quadrants of 1% local Xylocaine. Patient had large hemorrhoids located in the right and left lateral column area. The anal retractors placed anus. The right hemorrhoidal column was grasped and excised using Harmonic scissors. The left hemorrhoidal column was grasped and excised and hemostasis. There is also another hemorrhoids seen at the 12 o'clock position and this was removed with the Harmonic scissors. No bleeding seen. The ansa packed with Gelfoam. She thought procedure well and was sent to recovery in stable condition.
[2019-01-08] MEDS ORDERED: HYDROcodone/APAP 5-325MG 1 EACH TAB PO ONE (10:43)
== END 2019-01-08 11:15 | disposition home or self-care (01) ==
LOC: OR 07:39
PROVIDERS: ATTEND Surgery
DX: K64.4 Residual hemorrhoidal skin tags (principal); K64.8 Other hemorrhoids; Z90.49 Acquired absence of other specified parts of digestive tract; Z98.1 Arthrodesis status; F17.210 Nicotine dependence, cigarettes, uncomplicated; Z88.0 Allergy status to penicillin; Z79.899 Other long term (current) drug therapy
CPT/HCPCS: 88304; 46260; J2250; J1644; J1100; J2405; J3010; J2704

== ENCOUNTER → 2019-03-07 | Outpatient (CLI) | payer BC ==
--- NOTE | 2019-03-07 16:17 | MR ---
EXAMINATION TYPE: MR cervical spine wo/w con DATE OF EXAM: 03/07/2019 COMPARISON: None HISTORY: Neck pain/RUE radic CONTRAST: Performed utilizing 7.5 mL intravenous Gadavist gadolinium contrast. TECHNIQUE: Multiplanar multiecho imaging on a 3.0 Diana magnet is performed through the cervical spin e. FINDINGS: The craniovertebral junction is normal. Vertebral body alignment is normal. C7-T1: No focal disc herniation or significant disc bulge is evident. No spinal canal stenosis or n eural foraminal stenosis is present. C6-7: There is left paracentral disc bulging with mild anterior thecal sac compression. No AP spinal canal stenosis present. Mild left foraminal narrowing is present.. C5-6: No focal disc herniation or significant disc bulge is evident. No spinal canal stenosis present . Uncovertebral joint hypertrophy contributes to mild bilateral foraminal narrowing. C4-5: No focal disc herniation or significant disc bulge is evident. No spinal canal stenosis or parth ral foraminal stenosis is present. C3-4: No focal disc herniation or significant disc bulge is evident. No spinal canal stenosis or parth ral foraminal stenosis is present. C2-3: No focal disc herniation or significant disc bulge is evident. No spinal canal stenosis or parth ral foraminal stenosis is present. IMPRESSIONS: 1. Postsurgical changes C4-5. 2. Mild disc desiccation C5-6 with loss of disc height C4-5. 3. Mild left paracentral disc bulge at C6-7 with mild anterior thecal sac compression. No cord contac t or spinal canal stenosis is present.
== END | disposition home or self-care (01) ==
LOC: RADMRIMAIN 14:41
PROVIDERS: ATTEND Orthopaedic Surgery Orthopaedic Surgery of the Spine
DX: M50.223 Other cervical disc displacement at C6-C7 level (principal); Z98.1 Arthrodesis status
CPT/HCPCS: 72156; A9585

== ENCOUNTER → 2019-12-30 | Outpatient (CLI) | payer BC ==
--- NOTE | 2019-12-30 16:43 | XR ---
EXAMINATION TYPE: XR chest 2V DATE OF EXAM: 12/30/2019 CLINICAL HISTORY: Cough. TECHNIQUE: Frontal and lateral views of the chest are obtained. COMPARISON: Chest radiograph 10/02/2017 FINDINGS: The cardiomediastinal silhouette is within normal limits for size. Pulmonary vasculature i s normal. There is no focal air space opacity, pleural effusion, or pneumothorax seen. The osseous st ructures are intact. IMPRESSION: No acute cardiopulmonary process.
== END ==
LOC: RADXRMAIN 16:21
PROVIDERS: ATTEND Family Medicine
DX: R05 Cough (principal)
CPT/HCPCS: 71046

== ENCOUNTER → 2021-05-18 | Outpatient (CLI) | payer BC ==
[2021-05-18 18:44] LABS: ALT 27 U/L (10-49); AST 23 U/L (14-35); Chol/HDL Ratio 3.21 Ratio; VLDL Calculation 19.24 mg/dL (5.00-40.00)
== END | disposition home or self-care (01) ==
LOC: LABWHC1 10:39
PROVIDERS: ATTEND Internal Medicine
DX: E78.3 Hyperchylomicronemia (principal); E78.2 Mixed hyperlipidemia
CPT/HCPCS: 36415; 80061; 84450; 84460